=== PATIENT | female | born 1995 | race Two or more races ===

== ENCOUNTER 2018-05-05 11:33 | Emergency (ER) | payer OTHER ==
[~2018-05-05] VITALS: Ht 154.9 cm; Wt 67.1 kg
[2018-05-05] MEDS ORDERED: Norco 5mg/325mg tab ORAL ONE (12:30)
[2018-05-05] MEDS ORDERED: Methocarbamol 750mg tab ORAL ONE (12:30)
[2018-05-05] MEDS ORDERED: Bacitracin Oint UD TOPIC ONE (13:04)
[2018-05-05 13:16] VITALS: BP 133/87
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
--- NOTE | 2018-05-05 14:50 | Diagnostic Imaging Report ---
EXAM: CT Cervical Spine Without Intravenous Contrast CLINICAL HISTORY: PAIN TECHNIQUE: Axial computed tomography images of the cervical spine without intravenous contrast. CTDI is 13.77 mGy and DLP is 289.08 mGy-cm. One or more of the following dose reduction techniques were used: automated exposure control, adjustment of the mA and/or kV according to patient size, use of iterative reconstruction technique. COMPARISON: No relevant prior studies available. FINDINGS: Vertebrae: Unremarkable. No visible displaced fracture. Cervical body heights are preserved. The atlantodens interval appears unremarkable. Discs/spinal canal/neural foramina: No osseous central canal or foraminal stenosis. Soft tissues: Unremarkable. IMPRESSION: Unremarkable cervical spine CT.
--- NOTE | 2018-05-05 14:52 | Diagnostic Imaging Report ---
EXAM: CT Maxillofacial Without Intravenous Contrast CLINICAL HISTORY: PAIN TECHNIQUE: Axial computed tomography images of the face without intravenous contrast. CTDI is 28.19 mGy and DLP is 562.42 mGy-cm. One or more of the following dose reduction techniques were used: automated exposure control, adjustment of the mA and/or kV according to patient size, use of iterative reconstruction technique. COMPARISON: No relevant prior studies available. FINDINGS: Bones/joints: No visible displaced fracture. Soft tissues: Unremarkable. Orbits: Unremarkable. Bony orbits appear intact. Bilateral globes and intraconal soft tissues appear unremarkable. Sinuses: Unremarkable. No air-fluid levels. IMPRESSION: Unremarkable maxillofacial CT.
--- NOTE | 2018-05-05 14:53 | Diagnostic Imaging Report ---
EXAM: CT Head Without Intravenous Contrast CLINICAL HISTORY: PAIN TECHNIQUE: Axial computed tomography images of the head/brain without intravenous contrast. CTDI is 70.38 mGy and DLP is 1323.08 mGy-cm. One or more of the following dose reduction techniques were used: automated exposure control, adjustment of the mA and/or kV according to patient size, use of iterative reconstruction technique. COMPARISON: No relevant prior studies available. FINDINGS: Brain: Unremarkable. No evidence of acute intracranial hemorrhage. No significant white matter disease. No edema. No mass effect or midline shift. Ventricles: Unremarkable. No ventriculomegaly. Bones/joints: Unremarkable. No depressed skull fracture. Soft tissues: Unremarkable. Sinuses: Unremarkable as visualized. No acute sinusitis. Mastoid air cells: Unremarkable as visualized. No mastoid effusion. IMPRESSION: Unremarkable noncontrast CT of the head/brain.
--- NOTE | 2018-05-05 14:59 | Diagnostic Imaging Report ---
EXAM: XR Right Hip With Pelvis When Performed, 2 or 3 Views CLINICAL HISTORY: PAIN TECHNIQUE: Two or three views of the right hip, with pelvis when performed. COMPARISON: No relevant prior studies available. FINDINGS: Bones/joints: Unremarkable. No visible displaced fracture. No dislocation. No osseous erosions. Visualized joint spaces appear unremarkable. Soft tissues: Unremarkable. IMPRESSION: Unremarkable right hip x-rays.
[2018-05-05] MEDS ORDERED: LIDODERM700 M1 TOPIC (15:12)
[2018-05-05] MEDS ORDERED: BACITRACIN-P28.35 GM TP (15:12)
[2018-05-05] MEDS ORDERED: ROBAXIN-750750 MG PO (15:12)
[2018-05-05] MEDS ORDERED: TYLENOL EXTRA500 MG ORAL (15:12)
[2018-05-05 15:30] VITALS: BP_SYST 120; BP_SYST 128; BP_DIAS 78
--- NOTE | 2018-05-05 15:34 | Diagnostic Imaging Report ---
EXAM: XR Right Elbow Complete, 3 or More Views CLINICAL HISTORY: PAIN TECHNIQUE: Frontal, lateral and oblique views of the right elbow. COMPARISON: No relevant prior studies available. FINDINGS: Bones/joints: Unremarkable. No visible displaced fracture. No dislocation. No osseous erosions. Visualized joint spaces appear unremarkable. No abnormal elevation of the elbow fat pads. Soft tissues: Unremarkable. No radiodense foreign bodies. No soft tissue gas lucencies. IMPRESSION: Unremarkable right elbow x-rays.
== END 2018-05-05 15:30 | disposition home or self-care (01) ==
LOC: EMR 12:31
DX: S00.93XA Contusion of unspecified part of head, initial encounter (principal); S50.01XA Contusion of right elbow, initial encounter; S70.01XA Contusion of right hip, initial encounter; S30.0XXA Contusion of lower back and pelvis, initial encounter; S01.01XA Laceration without foreign body of scalp, initial encounter; V03.19XA Pedestrian with other conveyance injured in collision with car, pick-up truck or van in traffic accident, initial encounter; Y92.414 Local residential or business street as the place of occurrence of the external cause
CPT/HCPCS: 70450; 70486; 72125; 81025; 99284